=== PATIENT | female | born 1985 | race Caucasian/White ===

== ENCOUNTER 2024-08-27 17:36 | Outpatient (CLI) | payer OTHER ==
[2024-08-27 18:05] LABS: Appearance,Urine Clear (Clear); Bilirubin,Urine Negative (Negative); Blood,Urine Negative (Negative); Color,Urine Light Yellow; Glucose,Urine (UA) Negative (Negative); Ketones,Urine Negative (Negative); Leukocyte Esterase,Urine Negative (Negative); Nitrite,Urine Negative (Negative); Protein,Urine Negative (Negative); Specific Gravity,Urine 1.016 (1.001-1.035); Urobilinogen,Urine <2.0 mg/dL (<2.0)
[2024-08-27 18:19] LABS: Creatinine,Urine Random 103.9 mg/dL; Protein/Creatinine Ratio,Urine 0.154
[2024-08-27 18:59] LABS: Basophils % (A) 0 %; Eosinophils # (A) 0.2 k/uL (0-0.7); Eosinophils % (A) 2 %; HCT 31.8 % (34.0-46.0); Lymphocytes % (A) 13 %; MCH 27.1 pg (25.0-35.0); MCHC 31.5 g/dL (31.0-37.0); MCV 86.2 fL (80.0-100.0); Mean Platelet Volume 8.2; Monocytes # (A) 0.4 k/uL (0-1.0); Monocytes % (A) 6 %; Neutrophils # (A) 5.6 k/uL (1.3-7.7); Neutrophils % (A) 76 %; Platelet Count 255 k/uL (150-450); RBC 3.69 m/uL (3.80-5.40); RDW 14.6 % (11.5-15.5); WBC 7.4 k/uL (3.8-10.6)
[2024-08-27 19:04] VITALS: BP 146/96; PULSE 93; RESP 18; TEMP 97.8
[2024-08-27 19:16] LABS: ALT 14 U/L (4-34); AST 22 U/L (14-36); African American GFR (CKD) >90 (>60 ml/min/1.73 sqM); Blood Urea Nitrogen 9 mg/dL (7-17); Non-African American GFR(CKD) >90 (>60 ml/min/1.73 sqM); Uric Acid 5.6 mg/dL (3.7-7.4)
== END 2024-08-27 19:06 | disposition home or self-care (01) ==
LOC: FBPOP 17:36
PROVIDERS: ATTEND Obstetrics & Gynecology
DX: O13.9 Gestational [pregnancy-induced] hypertension without significant proteinuria, unspecified trimester (principal); Z91.040 Latex allergy status; Z3A.00 Weeks of gestation of pregnancy not specified
CPT/HCPCS: 59025; 81003; 82565; 82570; 84156; 84450; 84460; 84520; 84550; 85025

== ENCOUNTER 2024-09-02 06:18 | Inpatient (IN) | payer OTHER ==
[2024-09-02] MEDS ORDERED: miSOPROStoL 200 MCG TAB RECTAL PRN (06:32)
[2024-09-02] MEDS ORDERED: OXYTOCIN 10 UNIT/ML 1 ML VIAL IM PRN (06:32)
[2024-09-02] MEDS ORDERED: miSOPROStoL 200 MCG TAB PO PRN (06:32)
[2024-09-02] MEDS ORDERED: TERBUTALINE 1 MG/ML VIAL SQ PRN (06:32)
[2024-09-02] MEDS ORDERED: METHYLERGONOVINE 0.2 MG/ML 1 ML AMP IM PRN (06:32)
[2024-09-02] MEDS ORDERED: CARBOPROST TROMETHAMINE 250 MCG/ML 1 ML AMP IM PRN (06:32)
[2024-09-02] MEDS ORDERED: TRANEXAMIC 1,000 MG/100ML-NACL 1,000 MG in EMPTY BAG 1 BAG IV PRN (06:32)
[2024-09-02] MEDS ORDERED: LIDOCAINE 0.5% (PF) 5 MG/ML (50 ML SDV) SQ PRN (06:32)
[2024-09-02] MEDS: LACTATED RINGERS 1,000 ML IV SCH (06:49)
[2024-09-02] MEDS: OXYTOCIN 30 UNITS/500 ML NS 30 UNIT in SALINE 1 500ML.BAG IV SCH (07:00)
[2024-09-02 07:40] LABS: Basophils % (A) 0 %; Eosinophils # (A) 0.1 k/uL (0-0.7); Eosinophils % (A) 1 %; HCT 33.4 % (34.0-46.0); HGB 10.7 gm/dL (11.4-16.0); Lymphocytes % (A) 24 %; MCH 27.3 pg (25.0-35.0); MCHC 31.9 g/dL (31.0-37.0); MCV 85.4 fL (80.0-100.0); Mean Platelet Volume 7.6; Monocytes # (A) 0.3 k/uL (0-1.0); Monocytes % (A) 4 %; Neutrophils # (A) 5.8 k/uL (1.3-7.7); Neutrophils % (A) 70 %; Platelet Count 302 k/uL (150-450); RBC 3.91 m/uL (3.80-5.40); RDW 13.9 % (11.5-15.5); WBC 8.3 k/uL (3.8-10.6)
--- NOTE | 2024-09-02 10:22 | P.HPOB ---
History of Present Illness H&P Date: 09/02/24 Chief Complaint: Medical induction of labor Ms. Natarajan is a 39 year old at 37 weeks and 4 days gestation with EDC of 09/19/24 by LMP consistent with 11 week US who presents for medical induction of labor for gestational hypertension. Her PIH labs were within normal limits and her P:C ratio was within normal limits. The has otherwise been complicated by maternal anxiety and depression for which she takes Celexa 20 mg. The fetus is estimated in the 25%ile for gestational age based on a 32 week growth US. Obstetric history: 1 FTVD after IOL at 39 weeks for gHTN work-up: blood type B positive, antibody screen negative, rubella immune, VDRL non-reactive, HBsAg negative, HIV negative, HCV Ab non-reactive, gonorrhea negative, chlamydia negative, 1 hour GTT wnl, GBS negative Past Medical History Past Medical History: No Reported History History of Any Multi-Drug Resistant Organisms: None Reported Past Surgical History: No Surgical Hx Reported Past Anesthesia/Blood Transfusion Reactions: No Reported Reaction Smoking Status: Never smoker Medications and Allergies Home Medications Medication Instructions Recorded Confirmed Type Vit No.179/Iron/Folic 09/02/24 History [ Tablet] Allergies Allergy/AdvReac Type Severity Reaction Status Date / Time Latex, Natural Rubber Allergy Itching Verified 09/02/24 06:31 Exam Vital Signs Temp Pulse Resp BP Pulse Ox 09/02/24 06:34 96.2 F L 65 18 131/81 100 Intake and Output 09/01/24 09/02/24 09/02/24 22:59 06:59 14:59 Other: Weight 81.647 kg Focused physical exam is performed. This is a healthy-appearing in no apparent distress. Breathing is non-labored. Abdomen is gravid and non-tender. Cervical exam is fingertip/50/-3. Extremities non-tender and non-edematous. heart tones are Category I and tocometer is graphing contractions every 2- 4 minutes. Results Result Diagrams: 09/02/24 06:53 Abnormal Lab Results - Last 24 Hours (Table) 09/02/24 Range/Units 06:53 Hgb 10.7 L (11.4-16.0) gm/dL Hct 33.4 L (34.0-46.0) % Assessment and Plan Assessment: 39 year old at 37 weeks and 4 days being medically induced for gestational HTN Plan: Admit, clear liquid diet, pitocin per protocol, continuous EFM and tocometer.
[2024-09-02] MEDS ORDERED: ROPIVACAINE 5 MG/ML 30 ML VIAL ONE (13:25)
[2024-09-02] MEDS ORDERED: SODIUM CHLORIDE 0.9% 250 ML BAG ONE (13:25)
[2024-09-02] MEDS ORDERED: fentaNYL (PF) 50 MCG/ML 5 ML AMP ONE (13:25)
[2024-09-02] MEDS ORDERED: HYDROCORTISONE 2.5% RECTAL CREAM 30 GM TUBE RECTAL PRN (14:45)
[2024-09-02] MEDS ORDERED: BENZOCAINE/MENTHOL SPRAY 1 GM/SPRAY AEROSOL TOPICAL PRN (14:45)
[2024-09-02] MEDS ORDERED: ZOLPIDEM 5 MG TAB PO PRN (14:45)
[2024-09-02] MEDS ORDERED: diphenhydrAMINE 50 MG CAP PO PRN (14:45)
[2024-09-02] MEDS ORDERED: diphenhydrAMINE 50 MG/ML 1 ML VIAL IVP PRN ×2 (14:45)
[2024-09-02] MEDS ORDERED: LANOLIN CREAM 1 GM TUBE TOPICAL PRN (14:45)
[2024-09-02] MEDS ORDERED: SIMETHICONE 80 MG CHEWABLE PO PRN (14:45)
[2024-09-02] MEDS ORDERED: diphenhydrAMINE 25 MG CAP PO PRN (14:45)
--- NOTE | 2024-09-02 14:45 | P.PROBDLV ---
Vaginal Delivery Note - . Vaginal Delivery Note: DATE OF SERVICE: 09/02/2024 PROCEDURE: Normal Vaginal Delivery ATTENDING: Dr. Candace Herman MD ESTIMATED BLOOD LOSS: 200 mL FINDINGS: VMI, Apgars 8/9. Weight pending PROCEDURE: Ms. Natarajan is a 39 year old at 37 weeks presenting to labor and delivery for medical induction of labor for gestational hypertension. For further details, please review the admitting H&P. Pitocin was titrated per protocol. AROM was undertaken at 1159. The patient received her epidural. The patient was completely dilated at 1424. A viable male infant was delivered at 1429. The infant was placed on the maternal abdomen and bulb suctioned. The was noted to be spontaneously crying. Cord was clamped and cut after a 60-second delay. The infant was handed off to the pediatric team. Placenta was delivered whole with gentle cord traction at 1432. Oxytocin was started to facilitate uterine tone. Uterine fundus was found to be firm and below the umbilicus upon fundal massage. Thorough examination of the cervix, vagina, periurethral area, and perineum revealed no lacerations. The patient is stable and allowed to begin the bonding process.
[2024-09-02] MEDS: ACETAMINOPHEN TAB 500 MG TAB PO SCH (16:09)
[2024-09-02] MEDS: IBUPROFEN 800 MG TAB PO SCH (19:47)
[2024-09-02] MEDS: SENNOSIDES-DOCUSATE SODIUM 1 EACH TAB PO SCH (20:01)
[2024-09-03 02:51] LABS: Basophils % (A) 0 %; Eosinophils # (A) 0.2 k/uL (0-0.7); Eosinophils % (A) 1 %; HCT 30.5 % (34.0-46.0); HGB 9.9 gm/dL (11.4-16.0); Hypochromasia Slight; Lymphocytes # (A) 2.3 k/uL (1.0-4.8); Lymphocytes % (A) 20 %; MCH 28.2 pg (25.0-35.0); MCHC 32.5 g/dL (31.0-37.0); MCV 86.6 fL (80.0-100.0); Mean Platelet Volume 7.6; Monocytes # (A) 0.5 k/uL (0-1.0); Monocytes % (A) 4 %; Neutrophils # (A) 8.5 k/uL (1.3-7.7); Neutrophils % (A) 74 %; Platelet Count 270 k/uL (150-450); RBC 3.52 m/uL (3.80-5.40); RDW 14.1 % (11.5-15.5); WBC 11.6 k/uL (3.8-10.6)
--- NOTE | 2024-09-03 06:54 | P.DS ---
Providers Date of admission: 09/02/24 06:18 Expected date of discharge: 09/03/24 Attending physician: Candace Herman MD Primary care physician: Stated None Hospital Course: 39 year old now PPD#1 s/p . The patient is doing well this morning and had no acute events overnight. She has no complaints this morning. She reports minimal lochia, passing flatus, voiding without difficulty, ambulating, and eating/drinking without nausea or vomiting. doing well at bedside, s/p circumcision. She denies chest pain, shortness of breathing, fevers, or chills overnight. She denies pain or swelling in the legs. res trictions are reviewed with the patient including pelvic rest for 6 weeks. The patient is encouraged to call the office if she experiences any heavy bleeding, foul-smelling discharge, breast complaints, or any if she has any other concerns. She will follow up in the office with in 1 week for blood pressure check. All questions are answered. Patient Condition at Discharge: Good Plan - Discharge Summary New Discharge Prescriptions: No Action Vit No.179/Iron/Folic [ Tablet] Discharge Medication List Vit No.179/Iron/Folic [ Tablet] 09/02/24 [History] Follow up Appointment(s)/Referral(s): Candace Herman MD [STAFF PHYSICIAN] - 10/14/24 11:30 am Activity/Diet/Wound Care/Special Instructions: Instructions 1. Do not begin any exercise program for 3 weeks. 2. Do not resume sexual relations for 6 weeks or longer if uncomfortable. 3. You may take tub baths or showers at any time. 4. You may use tampons if desired after 6 weeks. 5. Keep any areas repaired with stitches clean and dry. 6. If you are not nursing, wear a good fitting, supportive bra during the day and limit fluid intake for at least 1 week to prevent breast engorgement. 7. Call the office, , within the next week to make appointment for your 6 week checkup if it has not already been made. 8. Report any of the following occurrences to the doctor promptly: a. Heavy, excessive bleeding b. Chills, fever c. Burning or frequency of urination d. Pain or redness and breasts if nursing e. Increasing pain or swelling of vulva (stitches). In addition to the above instructions, the following additional should be followed: 1. No heavy lifting or straining (exercising) until after 6 week checkup. 2. Keep abdominal incision clean and dry: You may wear a dressing if more comfortable. 3. Make office appointment for 2 weeks after delivery date. Discharge Disposition: HOME SELF-CARE
[2024-09-04 01:57] VITALS: RESP 16
[2024-09-04 08:00] VITALS: BP 148/89; PULSE 59; TEMP 97.9
== END 2024-09-04 16:40 | disposition home or self-care (01) | DRG 560 ==
LOC: 4FBP 06:18
PROVIDERS: ADMIT Obstetrics & Gynecology; ATTEND Obstetrics & Gynecology
PROC: 10907ZC Drainage of Amniotic Fluid, Therapeutic from Products of Conception, Via Natural or Artificial Opening (ICD-10-PCS; principal; 2024-09-02)
PROC: 10E0XZZ Delivery of Products of Conception, External Approach (ICD-10-PCS; principal; 2024-09-02)
PROC: 3E033VJ Introduction of Other Hormone into Peripheral Vein, Percutaneous Approach (ICD-10-PCS; principal; 2024-09-02)
DX: O13.4 Gestational [pregnancy-induced] hypertension without significant proteinuria, complicating childbirth (principal); O99.344 Other mental disorders complicating childbirth; F41.9 Anxiety disorder, unspecified; F32.A Depression, unspecified; Z91.040 Latex allergy status; Z79.899 Other long term (current) drug therapy; Z3A.37 37 weeks gestation of pregnancy; Z37.0 Single live birth
CPT/HCPCS: 85025; 86850; 86900; 86901